=== PATIENT | male | born 1940 | race Caucasian/White ===

== ENCOUNTER 2018-11-24 11:12 | Inpatient (IN) | payer MEDICARE, OTHER ==
[~2018-11-24] VITALS: Ht 185.4 cm; Wt 131.0 kg
--- NOTE | 2018-11-24 11:16 | NUR ---
ER MD RODRIGUES IN TO SEE PT. PT REPORTS [facility] FOR SEVERAL WEEKS. 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 DENIES CP. ALL MONITORS APPLIED.
--- NOTE | 2018-11-24 11:51 | NUR ---
THROUGHPUT RN: PT TRANSFERRED FROM [facility].
[2018-11-24] MEDS ORDERED: SODIUM CHLORIDE FLUSH 10ML SYR IVF ONE (12:00)
--- NOTE | 2018-11-24 12:08 | NUR ---
HOSPITALIST IN TO ASSESS PT
[2018-11-24] MEDS ORDERED: SODIUM CHLORIDE 0.9% 1,000 ML IV SCH ×2 (12:09→13:11)
[2018-11-24 12:16] LABS: ALBUMIN 3.3 g/dL (3.4-5.0); ANION GAP 5 mmol/L (5-15); CHLORIDE 111 mmol/L (98-107); CREATININE 1.06 mg/dL (0.7-1.3)
--- NOTE | 2018-11-24 12:16 | NUR ---
report given to kenton kumar
[2018-11-24 12:20] LABS: TROPONIN I < 0.015 ng/mL (0.000-0.045)
[2018-11-24] MEDS ORDERED: MULT-658 PO (12:26)
[2018-11-24] MEDS ORDERED: SIMV5TAB14 PO (12:26)
[2018-11-24] MEDS ORDERED: CETI-222 PO (12:26)
[2018-11-24] MEDS ORDERED: LEVO25TA4 PO (12:26)
[2018-11-24] MEDS ORDERED: HYDR12.517 PO (12:26)
[2018-11-24] MEDS ORDERED: CEFAZOLIN PMX 1GM/50ML 50 ML IVPB ONE (12:30)
[2018-11-24] MEDS ORDERED: FENTANYL PF 100 MCG/2ML ONE (13:29)
[2018-11-24] MEDS ORDERED: LIDOCAINE 2%, 20ML ONE (13:29)
[2018-11-24] MEDS ORDERED: MIDAZOLAM 1 MG/ML, 5ML ONE (13:29)
[2018-11-24] MEDS ORDERED: CEFAZOLIN 1,000 MG ONE (13:29)
[2018-11-24] MEDS ORDERED: CEFAZOLIN PMX 1GM/50ML 50 ML ONE (13:29)
[2018-11-24] MEDS ORDERED: hydrALAzine 20 MG/ML, 1ML IVPush PRN (13:30)
[2018-11-24] MEDS ORDERED: ENALAPRILAT 1.25 MG/ML, 2ML IVPush PRN (13:30)
[2018-11-24] MEDS ORDERED: ACETAMINOPHEN 325 MG TABLET PO PRN (13:30)
[2018-11-24] MEDS ORDERED: HYDROcodone/APAP 5/325 TABLET PO PRN (13:30)
[2018-11-24] MEDS ORDERED: BISACODYL 10 MG SUPP PR PRN (13:30)
[2018-11-24] MEDS ORDERED: POLYETHYLENE GLYCOL 17 GM PACKET PO PRN (13:30)
[2018-11-24] MEDS ORDERED: ONDANSETRON 2MG/ML, 2ML IVPush PRN (13:30)
[2018-11-24] MEDS ORDERED: ONDANSETRON ODT 4 MG PO PRN (13:30)
[2018-11-24] MEDS ORDERED: DOCUSATE 100 MG CAPSULE PO PRN (13:30)
[2018-11-24] MEDS ORDERED: hydrALAzine 20 MG/ML, 1ML ONE (14:12)
[2018-11-24] MEDS ORDERED: HOLD MEDICATION MC PRN (15:00)
[2018-11-24] MEDS ORDERED: LISINOPRIL 5 MG TABLET ONE (17:02)
[2018-11-24 18:58] VITALS: BP 168/76
[2018-11-24 20:03] VITALS: BP 152/74
[2018-11-24] MEDS ORDERED: LISINOPRIL 10 MG TABLET PO ONE (21:00)
[2018-11-24] MEDS ORDERED: SIMVASTATIN 10 MG TABLET PO SCH (21:00)
[2018-11-24] MEDS: CEFAZOLIN PMX 1GM/50ML 50 ML IVPB SCH (21:50)
[2018-11-24] MEDS: SODIUM CHLORIDE FLUSH 10ML SYR IVF SCH (21:59)
[2018-11-24 22:00] VITALS: BP 133/72
[2018-11-25 01:49] VITALS: BP 166/83
[2018-11-25 04:43] LABS: BASOPHILS # (AUTO) 0.04 x10^3/uL (0-0.1); BASOPHILS % (AUTO) 0 % (0-1); EOSINOPHILS # (AUTO) 0.23 x10^3/uL (0-0.4); EOSINOPHILS % (AUTO) 2 % (1-7); LYMPHOCYTES % (AUTO) 17 % (22-44); MD NO; MEAN CORPUSCULAR HEMOGLOBIN 31.8 pg (27.5-34.5); MEAN CORPUSCULAR HGB CONC 33.2 g/dL (33.2-36.2); MEAN CORPUSCULAR VOLUME 95.9 fL (81-97); MEAN PLATELET VOLUME 9.9 fL (7.4-10.4); MONOCYTES # (AUTO) 1.08 x10^3/uL (0.2-0.8); MONOCYTES % (AUTO) 9 % (2-9); NEUTROPHILS # (AUTO) 8.75 x10^3/uL (1.8-6.8); NEUTROPHILS % (AUTO) 72 % (42-75); PLATELET COUNT 208 x10^3/uL (130-400); RED BLOOD COUNT 4.82 x10^6/uL (4.38-5.82)
[2018-11-25 04:51] LABS: ANION GAP 6 mmol/L (5-15); CALCIUM 8.5 mg/dL (8.5-10.1); CHLORIDE 110 mmol/L (98-107); CREATININE 0.95 mg/dL (0.7-1.3)
[2018-11-25] MEDS: CEFAZOLIN PMX 1GM/50ML 50 ML IVPB SCH (05:38)
[2018-11-25] MEDS ORDERED: LEVOTHYROXINE 25 MCG TABLET PO SCH (06:00)
[2018-11-25 07:17] VITALS: BP 163/81
[2018-11-25] MEDS: SODIUM CHLORIDE FLUSH 10ML SYR IVF SCH (07:17)
[2018-11-25] MEDS ORDERED: LISINOPRIL 10 MG TABLET PO SCH (09:30)
[2018-11-25] MEDS ORDERED: HYDROCHLOROTHIAZIDE 12.5 MG CAPSULE PO SCH (09:30)
[2018-11-25 12:42] VITALS: BP 117/91
[2018-11-25] MEDS ORDERED: LISI-167 PO (14:44)
[2018-11-25] MEDS ORDERED: LEVO25TA2 PO (15:28)
== END 2018-11-25 16:52 | disposition home or self-care (01) | DRG 244 ==
LOC: ED 11:45 → EDIP 11:46 → ED 12:50 → 5SO 13:18 → DCLOUNGE 11-25 16:35
PROVIDERS: ADMIT Internal Medicine; ATTEND Internal Medicine
PROC: 0JH606Z Insertion of Pacemaker, Dual Chamber into Chest Subcutaneous Tissue and Fascia, Open Approach (ICD-10-PCS; 2018-11-24)
PROC: 02H63JZ Insertion of Pacemaker Lead into Right Atrium, Percutaneous Approach (ICD-10-PCS; 2018-11-24)
PROC: 02HK3JZ Insertion of Pacemaker Lead into Right Ventricle, Percutaneous Approach (ICD-10-PCS; 2018-11-24)
PROC: 4B02XSZ Measurement of Cardiac Pacemaker, External Approach (ICD-10-PCS; principal; 2018-11-25)
DX: I44.2 Atrioventricular block, complete (principal); E03.9 Hypothyroidism, unspecified; E66.9 Obesity, unspecified; Z68.38 Body mass index [BMI] 38.0-38.9, adult; Z96.652 Presence of left artificial knee joint; E78.5 Hyperlipidemia, unspecified; I10 Essential (primary) hypertension; I45.10 Unspecified right bundle-branch block; Z80.1 Family history of malignant neoplasm of trachea, bronchus and lung; Z82.49 Family history of ischemic heart disease and other diseases of the circulatory system; Z87.891 Personal history of nicotine dependence
CPT/HCPCS: 36415; 99291; J3490; 71045; 80048; 82040; 83735; 84443; 84484; 85025; 93005; 93306; G0378; J0690; J2250; J3010; J0360; J7030

== ENCOUNTER → 2019-05-29 | Outpatient (CLI) | payer OTHER ==
[~2019-05-29] MED LIST: CETI-222 PO; HYDR12.517 PO; LEVO25TA2 PO; LEVO25TA4 PO; LISI-167 PO; MULT-658 PO; REGADENOSON 0.4 MG/5 ML SYRINGE ONE; SIMV5TAB14 PO
== END | disposition home or self-care (01) ==
LOC: CFH 07:51
PROVIDERS: ATTEND Internal Medicine Cardiovascular Disease
DX: I10 Essential (primary) hypertension (principal); I44.2 Atrioventricular block, complete
CPT/HCPCS: 78452; 93017; A9502; J2785